=== PATIENT | male | born 1980 | race Hispanic/Latino ===

== ENCOUNTER 2018-08-07 20:45 | Emergency (ER) | payer BC ==
--- NOTE | 2018-08-07 21:04 | Emergency Department Report ---
Chief Complaint: Wound/Laceration Stated Complaint: LACERATION TO ABDOMEN Time Seen by Provider: 08/07/18 21:00 - HPI History of Present Illness: This is a 37 y.o. male that presents with a laceration to RUQ. Patient was skinning wire and accidentally cut stomach around 1200 today. Received tetanus last year. - ROS Review of Systems: laceration to RUQ - Exam Vital Signs: Vital Signs 08/07/18 20:59 Temperature 98 F Pulse Rate 87 Respiratory 18 Rate Blood Pressure 166/111 O2 Sat by Pulse 98 Oximetry MSE screening note: Focused history and physical exam performed. Due to findings the following was ordered: ACC for further evaluation. ED Disposition for MSE Condition: Stable
--- NOTE | 2018-08-07 22:22 | XRay Report ---
PROCEDURE: XR ABDOMEN 2V TECHNIQUE: Abdominal series, including supine and upright AP views. HISTORY: laceration RUQ COMPARISONS: None . FINDINGS: Bowel gas pattern: Nonobstructive . Masses or calcifications: None . Bony structures: There is been previous surgery at the thoracolumbar spine region. Hardware is ident ified from the 12th of the L2 vertebral levels. . Pneumoperitoneum: None . Other: No significant findings . IMPRESSION: No acute abnormality. This document is electronically signed by Cynthia Jerome DO., August 07 2018 10:19:52 PM ET
[2018-08-07] MEDS ORDERED: BOOSTRIX IM ONE (23:49)
[2018-08-07] MEDS ORDERED: NORCO 5/325 PO ONE (23:49)
[2018-08-07] MEDS ORDERED: XYLOCAINE 1% MPF 5 mL INFILTRATI ONE (23:52)
[2018-08-07] MEDS ORDERED: XYLOCAINE 1% MPF 5 mL ONE (23:55)
--- NOTE | 2018-08-08 00:45 | Emergency Department Report ---
- General Chief Complaint: Wound/Laceration Stated Complaint: LACERATION TO ABDOMEN Time Seen by Provider: 08/07/18 21:00 Source: patient Mode of arrival: Ambulatory Limitations: No Limitations - History of Present Illness Initial Comments: This is a 37 y.o. male that presents with a laceration to RUQ. Patient was skinning wire and accidentally cut stomach around 1200 today. Received tetanus last year. Onset/Timin -: hour(s) Location: abdomen Place: home Patient Tetanus UTD: Yes Context: accidental Associated Symptoms: none - Related Data Previous Rx's Medication Instructions Recorded Last Taken Type Tramadol HCl [Ultram] 50 mg PO Q6H PRN #12 tablet 08/08/18 Unknown Rx cephALEXin [Keflex] 500 mg PO Q6HR 10 Days #40 capsule 08/08/18 Unknown Rx Allergies Allergy/AdvReac Type Severity Reaction Status Date / Time No Known Allergies Allergy Verified 08/07/18 20:59 ED Review of Systems ROS: Stated complaint: LACERATION TO ABDOMEN Other details as noted in HPI Constitutional: denies: chills, fever Eyes: denies: eye pain, eye discharge, vision change ENT: denies: ear pain, throat pain Respiratory: denies: cough, shortness of breath, wheezing Cardiovascular: denies: chest pain, palpitations Endocrine: no symptoms reported Gastrointestinal: other (laceration right flank ). denies: abdominal pain, nausea, diarrhea Genitourinary: denies: urgency, dysuria Musculoskeletal: denies: back pain, joint swelling, arthralgia Skin: denies: rash, lesions Neurological: denies: headache, weakness, paresthesias Psychiatric: denies: anxiety, depression Hematological/Lymphatic: denies: easy bleeding, easy bruising ED Past Medical Hx - Past Medical History Previous Medical History?: Yes Additional medical history: Obesity, Chronic Back Pain - Surgical History Past Surgical History?: No Additional Surgical History: Spinal Fusion - Social History Smoking Status: Current Every Day Smoker Substance Use Type: None - Medications Home Medications: Home Medications Medication Instructions Recorded Confirmed Last Taken Type Tramadol HCl [Ultram] 50 mg PO Q6H PRN #12 tablet 08/08/18 Unknown Rx cephALEXin [Keflex] 500 mg PO Q6HR 10 Days #40 capsule 08/08/18 Unknown Rx ED Physical Exam - General Limitations: No Limitations General appearance: alert, in no apparent distress - Head Head exam: Present: atraumatic, normocephalic - Eye Eye exam: Present: normal appearance, PERRL, EOMI Pupils: Present: normal accommodation - ENT ENT exam: Present: mucous membranes moist - Neck Neck exam: Present: normal inspection, full ROM - Respiratory Respiratory exam: Present: normal lung sounds bilaterally. Absent: respiratory distress, wheezes, stridor - Cardiovascular Cardiovascular Exam: Present: regular rate, normal rhythm, normal heart sounds. Absent: systolic murmur, diastolic murmur, rubs, gallop - GI/Abdominal GI/Abdominal exam: Present: soft, normal bowel sounds. Absent: distended, tenderness, guarding, rebound, rigid, bruit, hernia - Rectal Rectal exam: Present: deferred - Extremities Exam Extremities exam: Present: normal inspection - Back Exam Back exam: Present: normal inspection, full ROM. Absent: tenderness, CVA tenderness (R), CVA tenderness (L), muscle spasm, paraspinal tenderness, vertebral tenderness, rash noted - Neurological Exam Neurological exam: Present: alert, oriented X3, CN II-XII intact, normal gait, reflexes normal - Psychiatric Psychiatric exam: Present: normal affect, normal mood - Skin Skin exam: Present: warm, dry, intact, normal color. Absent: rash ED Course Vital Signs 08/07/18 20:59 Temperature 98 F Pulse Rate 87 Respiratory 18 Rate Blood Pressure 166/111 O2 Sat by Pulse 98 Oximetry ED Medical Decision Making - Radiology Data Radiology results: report reviewed, image reviewed FINDINGS: Bowel gas pattern: Nonobstructive . Masses or calcifications: None . Bony structures: There is been previous surgery at the thoracolumbar spine region. Hardware is identified from the 12th of the L2 vertebral levels. . Pneumoperitoneum: None . Other: No significant findings . IMPRESSION: No acute abnormality. This document is electronically signed by Karie Jerome DO., August 07 2018 10:19:52 PM ET Transcribed By: [facility] Dictated By: KARIE JEROME MD Electronically Authenticated By: KARIE JEROME MD Signed Date/Time: 08/07/182221 DD/ 32 TD/TT: 08/07/182132 - Medical Decision Making Xray normal , right lateral abd wall L he: ceration 2 cm all bleeding controlled patient tolerated procedure was minimal distress patient given wound care instructions were verbalized understanding of saline follow with PCP in 2 days for wound check and 7 -10 days for suture removal Critical care attestation.: If time is entered above; I have spent that time in minutes in the direct care of this critically ill patient, excluding procedure time. ED Disposition Clinical Impression: Laceration of abdominal wall Qualifiers: Encounter type: initial encounter Qualified Code(s): S31.119A - Laceration without foreign body of abdominal wall, unspecified quadrant without penetration into peritoneal cavity, initial encounter Disposition: TO HOME OR SELFCARE Is pt being admited?: No Does the pt Need Aspirin: No Condition: Stable Instructions: Laceration (ED), Suture Care (ED) Prescriptions: cephALEXin [Keflex] 500 mg PO Q6HR 10 Days #40 capsule Tramadol HCl [Ultram] 50 mg PO Q6H PRN #12 tablet PRN Reason: pain Referrals: CARLEE BABIN MD [Primary Care Provider] - 3-5 Days Forms: Work/School Release Form(ED) Time of Disposition: 00:47
[2018-08-08 00:55] VITALS: BP 168/95
== END 2018-08-08 00:55 | disposition home or self-care (01) ==
LOC: ED 20:45
DX: S31.110A Laceration without foreign body of abdominal wall, right upper quadrant without penetration into peritoneal cavity, initial encounter (principal); G89.29 Other chronic pain; E66.9 Obesity, unspecified; F17.200 Nicotine dependence, unspecified, uncomplicated; W26.0XXA Contact with knife, initial encounter; Y93.89 Activity, other specified; Y92.009 Unspecified place in unspecified non-institutional (private) residence as the place of occurrence of the external cause; Y99.8 Other external cause status
CPT/HCPCS: 74019; 90471; 90715